=== PATIENT | female | born 1980 | race Caucasian/White ===

== ENCOUNTER 2024-11-02 15:20 | Emergency (ER) | payer BC, SELFPAY ==
[2024-11-02] VITALS (10 sets, daily range): BP systolic 133–162; BP diastolic 69–83; PULSE 78–91; RESP 14–18; TEMP 36.2–37.4; O2SAT 99–100; BMI 36.8
[2024-11-02] MEDS: MECLIZINE HCL 12.5 MG TABLET 50 MG PO (15:45)
[2024-11-02] MEDS: ACETAMINOPHEN 325 MG TABLET 975 MG PO (18:09)
[2024-11-02] MEDS: IBUPROFEN 400 MG TABLET 800 MG PO (18:10)
--- NOTE | 2024-11-02 21:07 | DI.RAD.S_ITS ---
PROCEDURE: XR CHEST 1V INDICATIONS: Chest Pain TECHNIQUE: One view of the chest was acquired. COMPARISON: None. FINDINGS: Surgical changes and devices: None. Lungs and pleura: Lungs are clear. No pleural effusions or pneumothorax. Mediastinum: Mediastinal contours appear normal. Heart size is normal. Bones and chest wall: No suspicious bony lesions. Overlying soft tissues appear unremarkable. IMPRESSION: No acute cardiopulmonary abnormality is seen. Dictated by: Brayden Morris M.D. on 11/02/2024 at 21:33 Approved by: Brayden Morris M.D. on 11/02/2024 at 21:34
--- NOTE | 2024-11-02 21:07 | EKG_ITS ---
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
[2024-11-02 21:20] LABS: INR 1.0 (0.9-1.3); Prothrombin Time 11.0 SECONDS (9.4-12.5)
[2024-11-02 21:22] LABS: Add Manual Diff / Slide Review NO; Hematocrit 43.2 % (36-46); Hemoglobin 14.3 g/dL (12.0-16.0); Lymphocytes Absolute Auto 2100 /uL (1100-4500); Mean Corpuscular HGB Conc 33.2 % (30-36); Mean Corpuscular Hemoglobin 29.3 PG (26-34); Mean Corpuscular Volume 88.3 fL (80-100); PTT Partial Thromboplastin Tim 30 SECONDS (25.1-36.5); Platelet Count 335 X10^3/uL (150-400)
[2024-11-02 21:25] LABS: Alanine Aminotransferase 31 IU/L (<35); Albumin 4.5 g/dL (3.5-5.0); Albumin Globulin Ratio 1.5 (1.0-2.8); Alkaline Phosphatase 85 U/L (38-126); Blood Urea Nitrogen 10 mg/dL (7-17); Calcium 9.3 mg/dL (8.4-10.2); Carbon Dioxide 24 mmol/L (22-32); Chloride 107 mmol/L (98-107); Creatine Kinase 69 U/L (30-135); Estimated Glomerular Filt Rate > 60 mL/min (>60); Globulin 3.1 g/dL (1.7-4.1); Glucose 103 mg/dL (70-99); HEMOLYSIS < 15 (0-50); Lipase 89 U/L (23-300); Magnesium 2.0 mg/dL (1.6-2.3); Potassium 4.2 mmol/L (3.4-5.1); Sodium 139 mmol/L (137-145); Total Protein 7.6 g/dL (6.3-8.2)
[2024-11-02 21:36] LABS: NT-proBNP (BNP-Adult 18+) 29 pg/mL (<125); Troponin I < 0.012 ng/mL (0.01-0.034)
[2024-11-03] VITALS (7 sets, daily range): BP systolic 123–150; BP diastolic 65–84; PULSE 74–100; O2SAT 97–99
[2024-11-03 00:01] LABS: Troponin I < 0.012 ng/mL (0.01-0.034)
--- NOTE | 2024-11-03 01:26 | ED.GENADULT ---
HPI - General Adult General Chief complaint: Dizziness Stated complaint: Lt ear, vertigo , N/V Time Seen by Provider: 11/02/24 15:42 Source: patient and family Mode of arrival: Ambulatory History of Present Illness HPI narrative: 44-year-old female with ongoing left ear pain seen in urgent care clinic 10/18/2024 felt to be allergic, not started on any oral/topical antibiotics, follow up in the emergency department [facility] where she had CT neck study for throat pain reportedly negative, still having left ear pain, followed up with [facility] rubber stamp die inspector on Sunday, and is scheduled for possible left tympanostomy tube tomorrow morning 08. She is taking regimen of oral Claritin, Advil, Tylenol, and nasal topical Flonase spray. Today having dizziness and spinning sensation. She contacted her rubber stamp die inspector, who suggested brain imaging. Related Data Allergies Allergy/AdvReac Type Severity Reaction Status Date / Time chlorhexidine Allergy Hives Verified 11/02/24 15:38 Sulfa (Sulfonamide Allergy Hives Verified 11/02/24 15:38 Antibiotics) Patient History Social History Smoking Status: Former smoker Smoking Status: Former smoker Exam Narrative Exam Narrative: GENERAL: Well-developed patient, in mild distress. HEAD: Atraumatic. Normocephalic. EYES: Pupils equal round and reactive. Extraocular motions intact. No scleral icterus. No injection or drainage. ENT: Nose without bleeding, purulent drainage. Throat without erythema, tonsillar hypertrophy or exudate. Airway patent. NECK: Trachea midline. Non tender CARDIOVASCULAR: Regular rate and rhythm without murmurs, gallops, or rubs. RESPIRATORY: Clear to auscultation. Breath sounds equal bilaterally. No wheezes, rales, or rhonchi. GASTROINTESTINAL: Abdomen soft, non-tender, nondistended. EXTREMITIES: No edema or joint tenderness. BACK: Nontender without deformity or crepitance. No flank tenderness. NEURO: Alert, cooperative, clear speech. Cranial nerves unremarkable. Motor 5/5 upper extremities and 5/5 lower extremities. Guzlvz-oa-[id number] testing, rapid alternating hand movements, [id number] testing normal. Sensation intact to light touch bilateral face arm leg. Seems to be able to move chin to chest and lateral [id number] head movements without significant discomfort. SKIN: No rash or erythema of visible areas Initial Vital Signs Initial Vital Signs: Vital Signs Temperature 97.5 F L 11/02/24 15:36 Pulse Rate 81 11/02/24 15:36 Respiratory Rate 14 11/02/24 15:36 Blood Pressure 162/72 H 11/02/24 15:36 Pulse Oximetry 100 11/02/24 15:36 Oxygen Delivery Method Room Air 11/02/24 15:36 Course Orders Ordered: Discontinued Medications Acetaminophen (Acetaminophen 325 Mg Tablet) 975 mg PO NOW ONE Stop: 11/02/24 18:00 Last Admin: 11/02/24 18:09 Dose: 975 mg Documented By: RADHA Acetaminophen (Acetaminophen 325 Mg Tablet) 650 mg PO NOW ONE Stop: 11/03/24 01:45 Last Admin: 11/03/24 02:33 Dose: 650 mg Documented By: SENA Ibuprofen (Ibuprofen 400 Mg Tablet) 800 mg PO NOW ONE Stop: 11/02/24 18:00 Last Admin: 11/02/24 18:10 Dose: 800 mg Documented By: RADHA Ibuprofen (Ibuprofen 400 Mg Tablet) 800 mg PO NOW ONE Stop: 11/03/24 01:45 Last Admin: 11/03/24 02:29 Dose: 800 mg Documented By: SENA Meclizine HCl (Meclizine Hcl 12.5 Mg Tablet) 50 mg PO NOW ONE Stop: 11/02/24 15:43 Last Admin: 11/02/24 15:45 Dose: 50 mg Documented By: KACEY Meclizine HCl (Meclizine Hcl 12.5 Mg Tablet) 50 mg PO NOW ONE Stop: 11/03/24 01:45 Last Admin: 11/03/24 02:28 Dose: 50 mg Documented By: SENA Vital Signs Vital signs: Vital Signs - 8 hr 11/02/24 20:15 11/02/24 23:28 11/02/24 23:29 Temperature 97.2 F L Pulse Rate 88 81 Respiratory Rate 16 Blood Pressure 146/72 H 136/79 Pulse Oximetry 99 100 Oxygen Delivery Method Room Air 11/02/24 23:29 11/02/24 23:30 11/02/24 23:30 Temperature Pulse Rate 81 80 Respiratory Rate Blood Pressure 133/78 Pulse Oximetry 99 100 Oxygen Delivery Method 11/02/24 23:31 11/02/24 23:31 11/02/24 23:33 Temperature Pulse Rate 78 Respiratory Rate Blood Pressure 138/79 141/83 H Pulse Oximetry 100 Oxygen Delivery Method 11/02/24 23:33 11/03/24 00:00 11/03/24 00:00 Temperature Pulse Rate 83 79 Respiratory Rate Blood Pressure 123/69 Pulse Oximetry 100 97 Oxygen Delivery Method 11/03/24 00:30 11/03/24 00:30 Temperature Pulse Rate 81 Respiratory Rate Blood Pressure 128/84 Pulse Oximetry 98 Oxygen Delivery Method Room Air Medical Decision Making Lab Data Lab results reviewed: Yes I reviewed the patient's lab results. Lab results narrative: White blood cell count 8400, hemoglobin 14.3, platelets adequate. Glucose 103. Renal function, serum CO2, electrolytes normal. Liver functions normal. Troponin x2 interval sets normal. 11/02/24 21:00 11/02/24 21:00 Labs: Lab Results 11/02/24 11/02/24 Range/Units 21:00 23:27 WBC 8.4 (4.5-11.0) X10^3/uL RBC 4.89 (4.0-5.2) X10^6/uL Hgb 14.3 (12.0-16.0) g/dL Hct 43.2 (36-46) % MCV 88.3 (80-100) fL MCH 29.3 (26-34) PG MCHC 33.2 (30-36) % RDW 13.0 (11.6-14.8) % Plt Count 335 (150-400) X10^3/uL Neut % (Auto) 68.2 (50-75) % Lymph % (Auto) 24.8 L (25-40) % Coles % (Auto) 4.9 (3-14) % Eos % (Auto) 0.7 L (2-4) % Baso % (Auto) 1.4 (0-2) % Neut # (Auto) 5700 (5001-1396) /uL Lymph # (Auto) 2100 (6981-3287) /uL Coles # (Auto) 400 (0-900) /uL Eos # (Auto) 100 (0-450) /uL Baso # (Auto) 100 (0-100) /uL PT 11.0 (9.4-12.5) SECONDS INR 1.0 (0.9-1.3) APTT 30 (25.1-36.5) SECONDS Sodium 139 (137-145) mmol/L Potassium 4.2 (3.4-5.1) mmol/L Chloride 107 (98-107) mmol/L Carbon Dioxide 24 (22-32) mmol/L BUN 10 (7-17) mg/dL Creatinine 0.61 (0.52-1.04) mg/dL Estimated GFR > 60 (>60) mL/min BUN/Creatinine Ratio 16.4 (6-22) Glucose 103 H (70-99) mg/dL Calcium 9.3 (8.4-10.2) mg/dL Magnesium 2.0 (1.6-2.3) mg/dL Total Bilirubin 0.5 (0.2-1.3) mg/dL AST 24 (14-36) IU/L ALT 31 (<35) IU/L Alkaline Phosphatase 85 (38-126) U/L Total Creatine Kinase 69 (30-135) U/L Troponin I < 0.012 < 0.012 (0.01-0.034) ng/mL NT-Pro-B Natriuret Pep 29 (<125) pg/mL Total Protein 7.6 (6.3-8.2) g/dL Albumin 4.5 (3.5-5.0) g/dL Globulin 3.1 (1.7-4.1) g/dL Albumin/Globulin Ratio 1.5 (1.0-2.8) Lipase 89 (23-300) U/L Imaging Data CT scan - head: Radiologist's Impression: [address] [address] [address] Scan Report Signed Patient: Tg Zacarias MR#: [id number] : 1980 Acct:[id number] Age/Sex: 44 / F Date of Service: 11/03/24 Loc: ED Accession Number: [id number] Procedure: CT head/brain wo con Ordering Provider: Tj James MD PROCEDURE: CT HEAD/BRAIN WO CON INDICATIONS: dizziness TECHNIQUE: Noncontrast 4.5 mm thick angled axial sections acquired from the foramen magnum to the vertex, with coronal and sagittal reformats. For radiation dose reduction, the following was used: automated exposure control, adjustment of mA and/or kV according to patient size. COMPARISON: None. FINDINGS: Image quality: Diagnostic. CSF spaces: Basal cisterns are patent. No extra-axial fluid collections. Ventricles are normal in size and shape. Brain: No midline shift. No intracranial mass effect or hemorrhage. Joseph-white matter interface is normal. Skull and face: Calvarium and visualized facial bones are intact, without suspicious lesions. Sinuses: Visualized sinuses and mastoids are clear. IMPRESSION: No acute intracranial pathology. Dictated by: Brayden Morris M.D. on 11/03/2024 at 2:00 Approved by: Brayden Morris M.D. on 11/03/2024 at 2:01 Chest x-ray: Radiologist's Impression: [address] [address] XRay Report Signed Patient: Tg Zacarias MR#: [id number] : 1980 Acct:[id number] Age/Sex: 44 / F Date of Service: 11/02/24 Loc: ED Accession Number: [id number] Procedure: XR chest 1V Ordering Provider: Tj James MD PROCEDURE: XR CHEST 1V INDICATIONS: Chest Pain TECHNIQUE: One view of the chest was acquired. COMPARISON: None. FINDINGS: Surgical changes and devices: None. Lungs and pleura: Lungs are clear. No pleural effusions or pneumothorax. Mediastinum: Mediastinal contours appear normal. Heart size is normal. Bones and chest wall: No suspicious bony lesions. Overlying soft tissues appear unremarkable. IMPRESSION: No acute cardiopulmonary abnormality is seen. Dictated by: Brayden Morris M.D. on 11/02/2024 at 21:33 Approved by: Brayden Morris M.D. on 11/02/2024 at 21:34 ECG Data Attestation: I personally reviewed and interpreted this ECG as follows: Interpretation: 0032, normal sinus rhythm with rate of 78, no obvious ST segment elevation or depression changes. AK 142, QRS 86, QTC 428. [facility] Narrative Medical decision making narrative: Ongoing left ear pain, throat pain recent visits out of town urgent care and [facility] emergency department for CT Neck imaging, has seen ENT and is awaiting possible tympanoplasty surgery tomorrow morning 0800. Today having vertigo spinning dizziness symptoms, still with atraumatic left ear pain, on exam TM not obviously abnormal appearing to me. Labs sent. Advised to get brain imaging by her ENT, no MRI availble here now, CT Head ordered. EKG without ascute changes, troponin x2 sets negative/unmeasurable. Other labs also negative. CXR no acute changes, see radiology report. CT Head no acute changes, see radiology report. PO meclizine tylnenol ibuprofen given in waiting room area, repeat doses hours later after imaging and lab result available. Copy of reports imaging. Copy of CT onto disc if their ENT wants to see. FU with ENT for tympanostomy as planned later this morning. Home with family. Discharge Plan Departure Patient Disposition: Home Clinical Impression: Left ear pain, Dizziness Activity Restrictions/Additional Instructions: Ongoing left ear pain with numerous previous visits including an urgent care visit and ED visit in abdomen is and otolaryngology clinic visit, awaiting tympanostomy tube in the left ear tomorrow (later this morning Sunday) with your rubber stamp die inspector. Dizziness today, some improvement with meclizine and anti-inflammatory ibuprofen. CT head showed no acute changes. Laboratory studies unrevealing. Consider [id number] meclizine. Follow up with your rubber stamp die inspector as planned for possible tympanostomy tube procedure. Return to this/nearest emergency department for any change worsening symptoms or any concerns prior. Stand Alone Forms: Patient Portal/API
--- NOTE | 2024-11-03 01:43 | DI.CT.S_ITS ---
PROCEDURE: CT HEAD/BRAIN WO CON INDICATIONS: dizziness TECHNIQUE: Noncontrast 4.5 mm thick angled axial sections acquired from the foramen magnum to the vertex, with coronal and sagittal reformats. For radiation dose reduction, the following was used: automated exposure control, adjustment of mA and/or kV according to patient size. COMPARISON: None. FINDINGS: Image quality: Diagnostic. CSF spaces: Basal cisterns are patent. No extra-axial fluid collections. Ventricles are normal in size and shape. Brain: No midline shift. No intracranial mass effect or hemorrhage. Joseph- white matter interface is normal. Skull and face: Calvarium and visualized facial bones are intact, without suspicious lesions. Sinuses: Visualized sinuses and mastoids are clear. IMPRESSION: No acute intracranial pathology. Dictated by: Brayden Morris M.D. on 11/03/2024 at 2:00 Approved by: Brayden Morris M.D. on 11/03/2024 at 2:01
[2024-11-03] MEDS: MECLIZINE HCL 12.5 MG TABLET 50 MG PO (02:28)
[2024-11-03] MEDS: IBUPROFEN 400 MG TABLET 800 MG PO (02:29)
[2024-11-03] MEDS: ACETAMINOPHEN 325 MG TABLET 650 MG PO (02:33)
== END 2024-11-03 02:42 | disposition home or self-care (01) ==
PROVIDERS: Emergency Provider Emergency Medicine
DX: H92.02 Otalgia, left ear (principal); R42 Dizziness and giddiness; R07.9 Chest pain, unspecified
CPT/HCPCS: 36415; 70450; 71045; 80053; 82550; 83690; 83735; 83880; 84484; 85025; 85610; 85730; 93005; 99283; 99284